=== PATIENT | male | born 1955 | race Hispanic/Latino ===

== ENCOUNTER 2020-11-21 06:55 | Day surgery (SDC) | payer MEDICARE ==
[2020-11-16 10:55] LABS: BASOPHILS % (AUTO) 1.1 % (0.0-5.0); HEMATOCRIT 41.7 % (36-48); MEAN CORPUSCULAR HEMOGLOBIN 34.1 pg (27.0-33.0); MEAN CORPUSCULAR HGB CONC 34.1 g/dL (32.0-36.0); MONOCYTES % (AUTO) 6.3 % (3.0-13.0); NEUTROPHILS % (AUTO) 50.3 % (40.0-77.0); PLATELET COUNT (AUTO) 229 K/uL (130-400); RED BLOOD CELL COUNT(AUTO) 4.17 MIL/uL (4.00-5.50); RED CELL DISTRIBUTION WIDTH 13.5 % (11.0-15.5)
[2020-11-16 11:01] LABS: CREATININE 0.9 mg/dL (0.5-1.5); POTASSIUM 5.1 mmol/L (3.5-5.1)
[2020-11-20 14:35] VITALS: BP 125/70
[2020-11-21] VITALS (17 sets, daily range): BP systolic 104–124; BP diastolic 57–68
[~2020-11-21] VITALS: Ht 177.8 cm; Wt 77.1 kg
[~2020-11-21 06:55] MED LIST: ESOM40CA PO; UMEC1DIS IH
[2020-11-21] MEDS ORDERED: LACTATED RINGERS 1000ML 1,000 ML IV ONE (07:28)
[2020-11-21] MEDS: CEFAZOLIN SODIUM 1 GM VIAL IVP ONE ×2 (08:06→10:55)
[2020-11-21] MEDS ORDERED: MIDAZOLAM HCL 1 MG/ML 2ML VIAL ONE (10:15)
[2020-11-21] MEDS ORDERED: LIDOCAINE PF 100MG/5ML (2%) SYRINGE 5ML ONE (10:15)
[2020-11-21] MEDS ORDERED: SUCCINYLCHOLINE CHLORIDE 20 MG/ML 10 ML VIAL ONE (10:15)
[2020-11-21] MEDS ORDERED: ROCURONIUM 10MG/1ML SYR 10 MG/ML ML ONE (10:16)
[2020-11-21] MEDS ORDERED: DEXAMETHASONE SOD PHOSPHATE 4 MG/ML 1ML VIAL ONE ×2 (10:16→10:34)
[2020-11-21] MEDS ORDERED: PROPOFOL 10 MG/ML 20ML VIAL IV ONE (10:16)
[2020-11-21] MEDS ORDERED: ONDANSETRON 4MG INJ ONE (10:16)
[2020-11-21] MEDS ORDERED: CEFAZOLIN SODIUM 1 GM VIAL ONE (10:17)
[2020-11-21] MEDS ORDERED: FENTANYL CITRATE PF 50 MCG/1 ML 2ML VIAL ONE (10:18)
[2020-11-21] MEDS ORDERED: BUPIVACAINE/PF 0.5% 30ML VIAL ONE (10:18)
[2020-11-21] MEDS ORDERED: GLYCOPYRROLATE 1 MG/5 ML SYRINGE ONE (11:17)
[2020-11-21] MEDS ORDERED: NEOSTIGMINE 5MG/5ML SYR IV ONE (11:17)
[2020-11-21] MEDS ORDERED: CEPH500C2 PO (11:51)
[2020-11-21] MEDS ORDERED: ACET1TAB25 PO (11:51)
== END 2020-11-21 13:50 | disposition home or self-care (01) ==
LOC: DAH 06:55 → EDSEX 09:00 → DAH 13:50
PROVIDERS: ATTEND Orthopaedic Surgery
DX: M70.21 Olecranon bursitis, right elbow (principal); Z20.822 Contact with and (suspected) exposure to COVID-19; L72.3 Sebaceous cyst; G89.29 Other chronic pain; J44.9 Chronic obstructive pulmonary disease, unspecified; K21.9 Gastro-esophageal reflux disease without esophagitis; F17.210 Nicotine dependence, cigarettes, uncomplicated; Z79.899 Other long term (current) drug therapy; Z98.890 Other specified postprocedural states; Z85.828 Personal history of other malignant neoplasm of skin
CPT/HCPCS: 24105; 36415; 80048; 85025; 87635; A4215; A4221; A4222; A4223; A4565; A4649 ×2; A4663; A4930 ×2; A6223; C9803; J0330; J0690 ×2; J1100; J2001; J2250; J2405; J2704; J2710; J3010; J3490 ×2; J7030; J7120 ×2

== ENCOUNTER → 2023-01-14 | Outpatient (CLI) | payer OTHER ==
[~2023-01-14] MED LIST changes: +ACET-2079 PO; +CEPH500C2 PO
== END | disposition home or self-care (01) ==
LOC: OIH 10:52
PROVIDERS: ATTEND Internal Medicine Cardiovascular Disease
DX: Z13.6 Encounter for screening for cardiovascular disorders (principal)
CPT/HCPCS: 75571

== ENCOUNTER 2023-07-07 06:16 | Day surgery (SDC) | payer MEDICARE ==
[2023-07-02 15:15] LABS: BASOPHILS % (AUTO) 1.2 % (0.0-5.0); EOSINOPHILS # (AUTO) 0.64 K/uL (0.00-0.70); EOSINOPHILS % (AUTO) 7.5 % (0.0-8.0); HEMATOCRIT 39.5 % (42-54); IMMATURE GRANULOCYTE ABSOLUTE 0.02 K/uL (0-1); LYMPHOCYTES # (AUTO) 2.9 K/uL (1.0-4.8); LYMPHOCYTES % (AUTO) 33.6 % (21.0-51.0); MEAN CORPUSCULAR HEMOGLOBIN 33.9 pg (27.0-33.0); MEAN CORPUSCULAR HGB CONC 34.4 g/dL (32.0-36.0); MEAN CORPUSCULAR VOLUME 98.5 fL (79-99); MONOCYTES # (AUTO) 0.5 K/uL (0.1-1.0); MONOCYTES % (AUTO) 6.2 % (3.0-13.0); NEUTROPHILS # (AUTO) 4.4 K/uL (1.8-7.7); NEUTROPHILS % (AUTO) 51.3 % (40.0-77.0); PLATELET COUNT (AUTO) 232 K/uL (130-400); RED BLOOD CELL COUNT(AUTO) 4.01 MIL/uL (4.50-6.20); RED CELL DISTRIBUTION WIDTH 13.6 % (11.0-15.5); WHITE BLOOD COUNT (AUTO) 8.6 K/uL (4.8-10.8)
[2023-07-02 15:29] LABS: INR <= 0.93 (0.85-1.15); PROTHROMBIN TIME 10.8 SEC (9.6-11.6)
[2023-07-02 15:31] VITALS: BP 132/70; PULSE 72; RESP 15
[2023-07-02 15:38] LABS: CREATININE 1.1 mg/dL (0.5-1.5); POTASSIUM 4.6 mmol/L (3.5-5.1)
[2023-07-07] VITALS (14 sets, daily range): BP systolic 112–132; BP diastolic 58–75; PULSE 53–68; RESP 12–18
[~2023-07-07] VITALS: Ht 175.3 cm; Wt 74.3 kg
[~2023-07-07 06:16] MED LIST changes: -ACET-2079 PO; +ATOR20TA65 PO; -CEPH500C2 PO; -ESOM40CA PO; +OMEP40CA21 PO; +TAMS-1 PO; -UMEC1DIS IH
[2023-07-07] MEDS ORDERED: BUPIVACAINE/PF 0.5% 30ML VIAL ONE (07:18)
[2023-07-07] MEDS ORDERED: EPINEPHRINE PF 1MG (1:1,000) 1 MG/ML AMP ONE (07:22)
[2023-07-07] MEDS: CEFAZOLIN SODIUM 2 GM VIAL ONE (07:26)
[2023-07-07] MEDS: LACTATED RINGERS 1000ML 1,000 ML IV ONE (07:26)
[2023-07-07] MEDS ORDERED: MIDAZOLAM HCL 1 MG/ML 2ML VIAL ONE (08:00)
[2023-07-07] MEDS ORDERED: PROPOFOL 10 MG/ML 20ML VIAL IV ONE (08:00)
[2023-07-07] MEDS ORDERED: LIDOCAINE PF 100MG/5ML (2%) SYRINGE 5ML ONE (08:00)
[2023-07-07] MEDS ORDERED: FENTANYL CITRATE PF 50 MCG/1 ML 2ML VIAL ONE (08:02)
[2023-07-07] MEDS: CEFAZOLIN SODIUM 2 GM VIAL IVPB ONE (08:10)
[2023-07-07] MEDS ORDERED: PHENYLEPHRINE HCL 10 MG/ML 1ML VIAL IV ONE (08:13)
[2023-07-07] MEDS ORDERED: 0.9%NACL 10ML VIAL ONE (08:13)
[2023-07-07] MEDS: BUPIVACAINE/PF 0.5% 30ML VIAL INJ ONE (08:31)
[2023-07-07] MEDS ORDERED: TRAM50TA4 PO (08:44)
[2023-07-07] MEDS ORDERED: DOCU-116 PO (08:44)
[2023-07-07] MEDS ORDERED: ONDANSETRON 4MG INJ ONE (08:51)
== END 2023-07-07 10:43 | disposition home or self-care (01) ==
LOC: DAH 06:16
PROVIDERS: ATTEND Surgery
DX: L90.5 Scar conditions and fibrosis of skin (principal); J44.9 Chronic obstructive pulmonary disease, unspecified; E78.5 Hyperlipidemia, unspecified; K21.9 Gastro-esophageal reflux disease without esophagitis; Z79.899 Other long term (current) drug therapy; Z79.01 Long term (current) use of anticoagulants; Z87.891 Personal history of nicotine dependence; Z98.890 Other specified postprocedural states
CPT/HCPCS: 93005; 80048; 85025; 85610; 36415; 11403; 88305; A4663; J7120; J3010; J2001; J0171; J2250; J2704; J2405; J0665 ×2; J2371; J0690 ×2; A4930; A4215; A4223; A4222; A4221; A4600; J3490

== ENCOUNTER → 2023-08-25 | Outpatient (CLI) | payer MEDICARE ==
[~2023-08-25] MED LIST changes: +DOCU-116 PO; +TRAM50TA4 PO
[2023-08-25 12:26] LABS: CHOLESTEROL 120 mg/dL (<200); HDL CHOLESTEROL 65 mg/dL (29-71); LDL DIRECT 44 mg/dL (0-99); TRIGLYCERIDES 38 mg/dL (30-200)
== END | disposition home or self-care (01) ==
LOC: LAB 08:20
PROVIDERS: ATTEND Internal Medicine Cardiovascular Disease
DX: E78.5 Hyperlipidemia, unspecified (principal)
CPT/HCPCS: 36415; 80061

== ENCOUNTER → 2024-12-21 | Outpatient (CLI) | payer MEDICARE ==
[~2024-12-21] MED LIST changes: -TAMS-1 PO; +TAMS-55 PO
--- NOTE | 2024-12-22 04:37 | HMCIMG ---
EXAM: CR Left Femur, 4 views. CLINICAL HISTORY: Pain. COMPARISON: None provided. FINDINGS: No acute fracture or aggressive appearing osseous lesion. Mild degenerative changes around the left hip and knee joints. Atherosclerotic vascular calcification is present. IMPRESSION: No acute bony abnormality is evident. /[place]
--- NOTE | 2024-12-22 04:37 | HMCIMG ---
EXAM: CR Left Tibia and Fibula, 2 views. CLINICAL HISTORY: Pain. COMPARISON: None provided. FINDINGS: No acute fracture or aggressive appearing osseous lesion. Mild degenerative changes in the included knee and ankle joints. The soft tissues are unremarkable. IMPRESSION: No acute bony abnormality is evident. /[place]
--- NOTE | 2024-12-22 04:38 | HMCIMG ---
EXAM: CR Pelvis and Bilateral Hips, 2 views. CLINICAL HISTORY: Leg pain. COMPARISON: None provided. FINDINGS: No acute fracture or aggressive appearing osseous lesion. 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 Presumed tiny pelvic phleboliths. IMPRESSION: No acute bony abnormality is evident. /[place]
== END | disposition home or self-care (01) ==
LOC: RAH 14:12
PROVIDERS: ATTEND Clinical Nurse Specialist Family Health
DX: M16.0 Bilateral primary osteoarthritis of hip (principal); M46.1 Sacroiliitis, not elsewhere classified; M17.12 Unilateral primary osteoarthritis, left knee; M19.072 Primary osteoarthritis, left ankle and foot; M79.605 Pain in left leg; F17.210 Nicotine dependence, cigarettes, uncomplicated; I70.90 Unspecified atherosclerosis
CPT/HCPCS: 73521; 73552; 73590

== ENCOUNTER → 2025-01-18 | Outpatient (CLI) | payer MEDICARE ==
--- NOTE | 2025-01-19 08:51 | HMCIMG ---
EXAMINATION: DUPLEX ULTRASOUND EXAMINATION OF THE LEFT LOWER EXTREMITY ARTERIES. CLINICAL HISTORY: Pain. COMPARISON: None. FINDINGS: Peak systolic velocities within the left lower arteries are as follows: Common femoral artery: 192 cm/s. Superficial femoral artery: 127 cm/s at proximal, 117 cm/s at mid, and 110 cm/s at distal segments. Popliteal artery: 70 cm/s at proximal and 89 cm/s at distal segments. Posterior tibial artery: 73 cm/s. Anterior tibial artery: 83 cm/s. Dorsalis pedis artery: 92 cm/s. The left lower limb arteries demonstrate triphasic waveforms in all arteries. There is intimal wall thickening with calcifications in the left lower limb arteries. IMPRESSION: Mild intimal wall thickening with calcifications in the left lower limb arteries. The left lower limb arteries demonstrate triphasic waveforms in all arteries. No flow limiting lesions. /[place]
== END | disposition home or self-care (01) ==
LOC: RAH 14:10
PROVIDERS: ATTEND Clinical Nurse Specialist Family Health
DX: I70.202 Unspecified atherosclerosis of native arteries of extremities, left leg (principal); M79.605 Pain in left leg; F17.201 Nicotine dependence, unspecified, in remission
CPT/HCPCS: 93926